=== PATIENT | female | born 1940 ===

== ENCOUNTER 2016-08-05 15:54 | Observation (INO) | payer MEDICARE, OTHER ==
[2016-08-05 15:55] VITALS: BMI 20.9
--- NOTE | 2016-08-05 16:18 | C.PDOC ---
History Of Present Illness Patient is a 75 y/o female that presents to the ED for evaluation of lightheadedness, body aches, generalized weakness, dizziness, abdominal pain, and back pain since last night. Pt states that her symptoms are worse than the previous time she was seen here (05/10/16). Otherwise, denies any urinary symptoms, fever, vomiting, diarrhea, or any other associated symptoms at this time. Time Seen by Provider: 08/05/16 16:17 Chief Complaint (Nursing): Dizziness/Lightheaded History Per: Patient History/Exam Limitations: no limitations Onset/Duration Of Symptoms: Days (1) Current Symptoms Are (Timing): Still Present Recent travel outside of the [place]: No Additional History Per: Patient Past Medical History Reviewed: Historical Data, Nursing Documentation, Vital Signs Vital Signs: Last Vital Signs Temp 98.1 F 08/07/16 15:20 Pulse 75 08/07/16 15:20 Resp 20 08/07/16 15:20 BP 109/72 08/07/16 15:20 Pulse Ox 94 L 08/07/16 15:20 - Medical History PMH: Asthma, Back Problems, HTN, Seizures Surgical History: Cholecystectomy Family History: States: Unknown Family Hx - Social History Hx Tobacco Use: No Hx Alcohol Use: No Hx Substance Use: No - Immunization History Hx Tetanus Toxoid Vaccination: No Hx Influenza Vaccination: Yes Hx Pneumococcal Vaccination: No Review Of Systems Except As Marked, All Systems Reviewed And Found Negative. Constitutional: Positive for: Weakness, Other (body aches). Negative for: Fever , Chills Cardiovascular: Positive for: Light Headedness. Negative for: Chest Pain, Palpitations Respiratory: Negative for: Cough, Shortness of Breath Gastrointestinal: Positive for: Nausea, Abdominal Pain. Negative for: Vomiting , Diarrhea Genitourinary: Negative for: Dysuria, Frequency, Incontinence, Hematuria Musculoskeletal: Positive for: Back Pain Neurological: Positive for: Headache, Dizziness. Negative for: Weakness, Numbness Physical Exam - Physical Exam Appears: Non-toxic, No Acute Distress Skin: Warm, Dry Head: Atraumatic, Normacephalic Eye(s): bilateral: PERRL, EOMI Oral Mucosa: Moist Tongue: No Swelling Neck: Normal ROM, Supple Cardiovascular: Rhythm Regular, No Murmur Respiratory: No Decreased Breath Sounds, No Accessory Muscle Use, No Rales, No Rhonchi, No Wheezing Gastrointestinal/Abdominal: Soft, Tenderness (diffuse, non-focal), No Guarding, No Rebound Back: No CVA Tenderness, No Vertebral Tenderness, Paraspinal Tenderness (lumbar) Pulses: Left Radial: Normal, Right Radial: Normal Neurological/Psych: Oriented x3, Normal Motor, Normal Sensation, No Other (no focal deficits) ED Course And Treatment - Laboratory Results Result Diagrams: 08/06/16 11:44 08/06/16 11:44 O2 Sat by Pulse Oximetry: 95 (on RA) Pulse Ox Interpretation: Normal Progress Note: Abd & pelvis CT, EKG, CXR, labs ordered and reviewed. Pt was given IV fluids, Tylenol, and Zofran. Medical Decision Making Medical Decision Making: EKG: NSR 72bpm. Non-specific T wave changes. 1850 pt still not feeling well. disc w Dr Elaine will admit for obs. CXR FINDINGS: LUNGS: No active pulmonary disease. PLEURA: No significant pleural effusion identified, no pneumothorax apparent. CARDIOVASCULAR: No radiographic findings to suggest acute or significant cardiovascular disease. OSSEOUS STRUCTURES: No significant abnormalities. VISUALIZED UPPER ABDOMEN: Normal. OTHER FINDINGS: None. IMPRESSION: No active disease. No significant interval change compared to the prior examination(s). Abd & pelvis CT FINDINGS: Artifacts: Streak artifact degrades image quality.Motion artifact degrades image quality. Lower thorax: Heart size is normal. There is atelectasis and scarring at the lung bases. ABDOMEN: Liver: There is mild fatty infiltration liver. Gallbladder and bile ducts: Gallbladder is surgically absent. Common bile duct is prominent. There is mild intrahepatic biliary ductal dilatation. Pancreas: Pancreas is mildly atrophic. Spleen: unremarkable Adrenals: unremarkable Kidneys and ureters: No focal renal abnormalities are seen. There is mild bilateral pelvocaliectasis. There is no ureterectasis. Stomach and bowel: Stomach is almost empty. Rotation is normal. There are mildly dilated small bowel loops in the left upper quadrant with air-fluid levels. Distention decreases distally. Streak and motion limits evaluation of bowel. There is fecalization of the distal and terminal ileum. There are surgical clips at the base of the cecum. Streak and motion limit evaluation of the colon. There is moderate stool throughout the colon. There is scattered diverticulosis Appendix: See stomach and bowel PELVIS: Bladder: unremarkable Reproductive: Uterus is absent. There are no adnexal masses. ABDOMEN and PELVIS: Intraperitoneal space: There is no free air or free fluid. Bones/joints: Bony structures are osteopenic.There are degenerative changes in the osseus structures. There is compression fracture at L4, unchanged. Soft tissues: unremarkable Vasculature: There are calcified phleboliths. Vascular structures are unremarkable. Lymph nodes: There is no pathologic adenopathy. IMPRESSION: Mild intra-extrahepatic biliary ductal dilatation status post cholecystectomy; hysterectomy and appendectomy; constipation; stable bilateral pelvocaliectasis, no renal or ureteral stones Additional findings as described above. Disposition - Disposition Disposition: HOSPITALIZED Disposition Time: 18:50 Condition: STABLE - Clinical Impression Clinical Impression: Ileus, UTI (urinary tract infection) - Scribe Statement The provider has reviewed the documentation as recorded by the Andrés Elaine Provider Attestation: All medical record entries made by the Malloryibgenet were at my direction and personally dictated by me. I have reviewed the chart and agree that the record accurately reflects my personal performance of the history, physical exam, medical decision making, and the department course for this patient. I have also personally directed, reviewed, and agree with the discharge instructions and disposition.
[2016-08-05] MEDS ORDERED: Sodium Chloride 0.9% 1,000 ML IV ONE (16:27)
[2016-08-05 16:43] LABS: BASO % 0.3 % (0.0-2.0); EOS # 0.2 K/uL (0.0-0.7); EOS % 1.9 % (0.0-4.0); HEMATOCRIT 40.8 % (34.0-47.0); LYMPH # 1.1 K/uL (1.0-4.3); MEAN CELL VOLUME 90.8 fL (81.0-99.0); MEAN CORPUSCULAR HGB CONC 34.2 g/dL (33.0-37.0); MEAN PLATELET VOLUME 9.4 fL (7.2-11.7); MONO # 0.8 K/uL (0.0-0.8); RED CELL DISTRIBUTION WIDTH 12.8 % (11.5-14.5); WHITE BLOOD COUNT 8.8 K/uL (4.8-10.8)
[2016-08-05] MEDS ORDERED: Morphine 4 MG/ML VIAL ONE (16:44)
[2016-08-05] MEDS ORDERED: Sodium Chloride 0.9% 1,000 ML ONE ×2 (16:45→19:20)
[2016-08-05 16:51] LABS: CHLORIDE 102 mmol/L (98-107); SODIUM 136 mmol/L (132-148)
[2016-08-05 16:52] LABS: POTASSIUM 4.2 mmol/L (3.6-5.2)
[2016-08-05 16:53] LABS: GFR AFRICAN-AMERICAN > 60
[2016-08-05 16:54] LABS: ALB/GLOB RATIO 1.2 (1.0-2.1); ALKALINE PHOSPHATASE 108 U/L (38-126); ALT/SGPT 23 U/L (9-52); AST/SGOT 22 U/L (14-36); BILIRUBIN,TOTAL 0.5 mg/dL (0.2-1.3); BLOOD UREA NITROGEN 17 mg/dL (7-17); CALCIUM 8.4 mg/dl (8.6-10.4); CARBON DIOXIDE 24 mmol/L (22-30); GLUCOSE,RANDOM 87 mg/dL (65-105); TOTAL PROTEIN 7.3 g/dL (6.3-8.3)
--- NOTE | 2016-08-05 17:21 | RAD ---
HISTORY: Dizziness. Portable study 16:33. COMPARISON: 03/06/2016 FINDINGS: LUNGS: No active pulmonary disease. PLEURA: No significant pleural effusion identified, no pneumothorax apparent. CARDIOVASCULAR: No radiographic findings to suggest acute or significant cardiovascular disease. OSSEOUS STRUCTURES: No significant abnormalities. VISUALIZED UPPER ABDOMEN: Normal. OTHER FINDINGS: None. IMPRESSION: No active disease. No significant interval change compared to the prior examination(s).
[2016-08-05] MEDS ORDERED: Iodixanol 320 MG/ML 100 ML BOTTLE IV ONE (17:26)
[2016-08-05 17:46] LABS: RBC URINE 15 /hpf (0-3); URINE BACTERIA RARE (<OCC); URINE BILIRUBIN NEGATIVE (NEGATIVE); URINE BLOOD 2+ (NEGATIVE); URINE COLOR Yellow (YELLOW); URINE GLUCOSE (UA) NORMAL (Normal); URINE KETONE NEGATIVE (NEGATIVE); URINE PROTEIN NEGATIVE (NEGATIVE); URINE UROBILINOGEN NORMAL mg/dL (0.2-1.0); WBC URINE 6 /hpf (0-5)
[2016-08-05 17:47] LABS: URINE LEUKOCYTE ESTERASE TRACE Leu/uL (Negative)
--- NOTE | 2016-08-05 18:32 | CT ---
EXAM: CT Abdomen and Pelvis With Intravenous Contrast CLINICAL HISTORY: 75 years old, female; Pain; Abdominal pain; Generalized; Prior surgery; Surgery date: 6+ months TECHNIQUE: Axial computed tomography images of the abdomen and pelvis with intravenous contrast. This CT exam was performed using one or more of the following dose reduction techniques: automated exposure control, adjustment of the mA and/or kV according to patient size, and/or use of iterative reconstruction technique. Coronal and sagittal reformatted images were created and reviewed. CONTRAST: 100 mL of visipaque administered intravenously. EXAM DATE/TIME: 08/05/2016 4:26 PM COMPARISON: CT - ABD PELVIS IV CONTRAST ONLY 05/10/2016 10:02:12 PM FINDINGS: Artifacts: Streak artifact degrades image quality.Motion artifact degrades image quality. Lower thorax: Heart size is normal. There is atelectasis and scarring at the lung bases. ABDOMEN: Liver: There is mild fatty infiltration liver. Gallbladder and bile ducts: Gallbladder is surgically absent. Common bile duct is prominent. There is mild intrahepatic biliary ductal dilatation. Pancreas: Pancreas is mildly atrophic. Spleen: unremarkable Adrenals: unremarkable Kidneys and ureters: No focal renal abnormalities are seen. There is mild bilateral pelvocaliectasis. There is no ureterectasis. Stomach and bowel: Stomach is almost empty. Rotation is normal. There are mildly dilated small bowel loops in the left upper quadrant with air-fluid levels. Distention decreases distally. Streak and motion limits evaluation of bowel. There is fecalization of the distal and terminal ileum. There are surgical clips at the base of the cecum. Streak and motion limit evaluation of the colon. There is moderate stool throughout the colon. There is scattered diverticulosis Appendix: See stomach and bowel PELVIS: Bladder: unremarkable Reproductive: Uterus is absent. There are no adnexal masses. ABDOMEN and PELVIS: Intraperitoneal space: There is no free air or free fluid. Bones/joints: Bony structures are osteopenic.There are degenerative changes in the osseus structures. There is compression fracture at L4, unchanged. Soft tissues: unremarkable Vasculature: There are calcified phleboliths. Vascular structures are unremarkable. Lymph nodes: There is no pathologic adenopathy. IMPRESSION: Mild intra-extrahepatic biliary ductal dilatation status post cholecystectomy; hysterectomy and appendectomy; constipation; stable bilateral pelvocaliectasis, no renal or ureteral stones Additional findings as described above.
[2016-08-05] MEDS ORDERED: cefTRIAXone IV 1 gm in Dextros 50 ML IVPB ONE (18:51)
[2016-08-05] MEDS ORDERED: Sodium Chloride 0.9% 1,000 ML IV SCH (19:00)
--- NOTE | 2016-08-06 07:56 | CP.PCM.CON ---
<Aura Russell - Last Filed: 08/06/16 09:09> History of Present Illness - History of Present Illness History of Present Illness: Gastroenterology Fellow/PGY4 Consult Note 75 year old female with history of Hypertension, Seizures, Arthritis, and Back pain presenting with abdominal pain. Patient describes sudden onset of diffuse abdominal discomfort last night, pain scale 10/10. At present, she notes moderate improvement in discomfort. Associated subjective fever, chills, right sided headache, right ear pain, and back pain. Notes hard stool with straining yesterday. Normal bowel habits at baseline being every two days with hard stools and straining. Denies nausea, vomiting, hematemesis, abdominal distension , heartburn, acid reflux, indigestion, bloating, melena, hematochezia, or unintentional weight loss. Recent CT A/P PO/IV contrast 07/07/16 showed constipation. ER visit 05/10/16 for lightheadedness and epigastric pain with CT A/ P IV contrast showing constipation. Prior EGD and colonoscopy with gastritis, diverticulosis, and endorsed colon polyps seven to eight years ago [place] [facility] [place]. Family- denies colon cancer Social- denies tobacco, alcohol, illicit drug use Surgery- hysterectomy, appendectomy, cholecystectomy Review of Systems - Review of Systems Review of Systems: A 12-point review of systems negative except for as above Past Patient History - Infectious Disease Hx of Infectious Diseases: None - Past Medical History & Family History Past Medical History?: Yes - Past Social History Smoking Status: Never Smoked - CARDIAC Hx Cardiac Disorders: Yes Hx Hypertension: Yes - PULMONARY Hx Asthma: Yes - NEUROLOGICAL Hx Seizures: Yes - HEENT Hx HEENT Problems: No - RENAL Hx Chronic Kidney Disease: No - ENDOCRINE/METABOLIC Hx Endocrine Disorders: No - HEMATOLOGICAL/ONCOLOGICAL Hx Blood Disorders: Yes Hx Cancer: Yes (ovarian) - INTEGUMENTARY Hx Dermatological Problems: Yes Other/Comment: RT BREAST CYST REMOVED -BENIGN - MUSCULOSKELETAL/RHEUMATOLOGICAL Hx Musculoskeletal Disorders: Yes Hx Falls: No Hx Herniated Disk: Yes - GASTROINTESTINAL Hx Gastrointestinal Disorders: No - GENITOURINARY/GYNECOLOGICAL Hx Genitourinary Disorders: Yes Hx Ovarian Cancer: Yes - PSYCHIATRIC Hx Psychophysiologic Disorder: No Hx Substance Use: No - SURGICAL HISTORY Hx Cholecystectomy: Yes - ANESTHESIA Hx Anesthesia: Yes Hx Anesthesia Reactions: No Meds Allergies/Adverse Reactions: Allergies Allergy/AdvReac Type Severity Reaction Status Date / Time aspirin Allergy Verified 08/05/16 16:11 latex Allergy Verified 08/05/16 16:11 Penicillins Allergy Verified 08/05/16 16:11 - Medications Medications: Current Medications Clonazepam (Klonopin) 2 mg PO TID [facility] Enoxaparin Sodium (Lovenox) 40 mg SC DAILY [facility] Sodium Chloride (Sodium Chloride 0.9%) 1,000 mls @ 100 mls/hr IV .Q10H [facility] Last Admin: 08/05/16 19:24 Dose: 100 mls/hr Phenytoin Sodium (Dilantin) 100 mg PO TID [facility] Physical Exam - Constitutional Appears: Non-toxic, No Acute Distress - Head Exam Head Exam: ATRAUMATIC, NORMOCEPHALIC - Eye Exam Eye Exam: EOMI, PERRL Pupil Exam: PERRL. absent: Miosis, Mydriatic - ENT Exam ENT Exam: Mucous Membranes Moist, Normal Oropharynx - Neck Exam Neck exam: Positive for: Full Rom, Normal Inspection - Respiratory Exam Respiratory Exam: Clear to Auscultation Bilateral. absent: Rales, Rhonchi, Wheezes - Cardiovascular Exam Cardiovascular Exam: RRR, +S1, +S2. absent: Gallop, Rubs - GI/Abdominal Exam GI & Abdominal Exam: Normal Bowel Sounds, Soft, Tenderness. absent: Distended, Firm, Guarding, Organomegaly, Rebound, Rigid Additional comments: Bilateral upper quadrant tenderness to palpation - Extremities Exam Extremities exam: Positive for: normal inspection. Negative for: pedal edema - Neurological Exam Neurological exam: Alert - Psychiatric Exam Psychiatric exam: Normal Affect, Normal Mood - Skin Skin Exam: Dry, Intact, Normal Color, Warm Results - Vital Signs Recent Vital Signs: Last Vital Signs Temp 99.6 F 08/06/16 00:54 Pulse 72 08/06/16 00:54 Resp 20 08/06/16 00:54 BP 119/67 08/06/16 00:54 Pulse Ox 95 08/06/16 00:54 - Labs Result Diagrams: 08/05/16 16:40 08/05/16 16:40 Assessment & Plan - Assessment and Plan (Free Text) Assessment: 75 year old female with history of Hypertension, Seizures, Arthritis, and Back pain presenting with abdominal pain. CT A/P IV contrast showing chronic intra-/ extrahepatic dilatations in setting of cholecystectomy and mild left upper quadrant dilated small bowel loops with decresed distal distension, fecalization of distal/terminal ileum, and constipation. Prior EGD and colonoscopy with gastritis, diverticulosis, and endorsed polyps 7-8 years ago [place] [facility] [place] Plan: >mild dilated small bowel loops with fecalization of terminal ileum, constipation >aggressive bowel regimen- one time Dulcolax PO and tap water enema >start Miralax and Colace daily >heart healthy diet >supportive care: pain control, antiemetics, IVFs >low grade temp, urine culture pending >received one dose Ceftriaxone in ER >will follow clinical course <Jonathan Alves - Last Filed: 08/06/16 09:40> Meds - Medications Medications: Current Medications Clonazepam (Klonopin) 2 mg PO TID [facility] Docusate Sodium (Colace) 100 mg PO BID [facility] Enoxaparin Sodium (Lovenox) 40 mg SC DAILY [facility] Sodium Chloride (Sodium Chloride 0.9%) 1,000 mls @ 100 mls/hr IV .Q10H [facility] Last Admin: 08/05/16 19:24 Dose: 100 mls/hr Phenytoin Sodium (Dilantin) 100 mg PO TID [facility] Polyethylene Glycol (Miralax) 17 gm PO DAILY [facility] Results - Vital Signs Recent Vital Signs: Last Vital Signs Temp 99.6 F 08/06/16 00:54 Pulse 72 08/06/16 00:54 Resp 20 08/06/16 00:54 BP 119/67 08/06/16 00:54 Pulse Ox 95 08/06/16 00:54 - Labs Result Diagrams: 08/05/16 16:40 08/05/16 16:40 Attending/Attestation - Attestation I have personally seen and examined this patient.: Yes I have fully participated in the care of the patient.: Yes I have reviewed all pertinent clinical information: Yes Notes (Text): 08/06/16 09:34 I have seen and examined patient with GI fellow. Agree with above documentation with the following additions. In brief, this is a 75 year old female with history of HTN, seizure disorder, arthritis who presents to hospital with complaint of sudden onset abdominal pain which began last night. Prior to this she was in usual state of health, though she does endorse a history of chronic constipation with hard stools/straining during defecation for past several years. She describes the pain as generalized, 10/10 intensity , non-radiating, and worse following meal consumption. She denies nausea, vomiting, fever/chills, weight loss, rectal bleeding, or change in bowel habits. She had a bowel movement yesterday. She had a colonoscopy 7-8 years ago [place] [facility] [place] which showed a "few" polyps as per patient. HTN Seizure disorder Arthritis Abdominal pain, chronic constipation UTI CT imaging reviewed by me showing moderate fecal retention with mild dilation in small bowel loops, no gross obstruction noted - Diet as tolerated - Continue with antibiotic therapy as per medical team, await urine culture results - Suggest tap water enema now, followed by initiation of aggressive bowel regimen to prevent ongoing constipation including stool softner and miralax therapy - Encourage increased PO water and fiber intake - Patient would benefit from elective outpatient colonoscopy evaluation given prior procedure with history of polyps, office contact information provided to patient - Will continue to monitor patient clinical course
[2016-08-06] MEDS ORDERED: Bisacodyl 5mg EC Tab PO ONE (09:30)
[2016-08-06] MEDS: POLYETHYLENE GLYCOL 3350 17 GM/Dose PACKET PO SCH (10:31)
[2016-08-06] MEDS: Enoxaparin 40 mg Syringe SC SCH (10:33)
[2016-08-06 12:00] LABS: BASO % 0.7 % (0.0-2.0); EOS # 0.2 K/uL (0.0-0.7); EOS % 4.3 % (0.0-4.0); HEMATOCRIT 37.7 % (34.0-47.0); LYMPH % 18.3 % (20.0-40.0); MEAN CELL VOLUME 91.6 fL (81.0-99.0); MEAN CORPUSCULAR HEMOGLOBIN 30.7 pg (27.0-31.0); MEAN CORPUSCULAR HGB CONC 33.5 g/dL (33.0-37.0); MEAN PLATELET VOLUME 9.6 fL (7.2-11.7); MONO # 0.7 K/uL (0.0-0.8); MONO % 12.1 % (0.0-10.0); RED CELL DISTRIBUTION WIDTH 13.1 % (11.5-14.5); WHITE BLOOD COUNT 5.5 K/uL (4.8-10.8)
[2016-08-06 12:05] LABS: CHLORIDE 104 mmol/L (98-107); SODIUM 138 mmol/L (132-148)
[2016-08-06 12:06] LABS: POTASSIUM 4.1 mmol/L (3.6-5.2)
[2016-08-06 12:08] LABS: ALB/GLOB RATIO 1.2 (1.0-2.1); ALKALINE PHOSPHATASE 89 U/L (38-126); ALT/SGPT 17 U/L (9-52); AST/SGOT 17 U/L (14-36); BILIRUBIN,TOTAL 0.4 mg/dL (0.2-1.3); BLOOD UREA NITROGEN 9 mg/dL (7-17); CARBON DIOXIDE 27 mmol/L (22-30); GFR AFRICAN-AMERICAN > 60; GLUCOSE,RANDOM 125 mg/dL (65-105); TOTAL PROTEIN 6.4 g/dL (6.3-8.3)
[2016-08-06 12:09] LABS: CALCIUM 8.1 mg/dl (8.6-10.4)
--- NOTE | 2016-08-06 13:13 | CP.PCM.HP ---
History of Present Illness - History of Present Illness History of Present Illness: 75-year-old old female patient with a past medical history of hypertension, seizures, asthma, who presented to the ER for evaluation of lightheadedness, body aches, generalized weakness, dizziness, abdominal pain and back pain since last night. Patient states that her symptoms are worse than the previous time she was seen here. Denies any urinary symptoms, fever, vomiting, diarrhea or any other associated symptom at this time. Present on Admission - Present on Admission Any Indicators Present on Admission: No Past Patient History - Infectious Disease Hx of Infectious Diseases: None - Past Medical History & Family History Past Medical History?: Yes - Past Social History Smoking Status: Never Smoked - CARDIAC Hx Cardiac Disorders: Yes Hx Hypertension: Yes - PULMONARY Hx Asthma: Yes - NEUROLOGICAL Hx Seizures: Yes - HEENT Hx HEENT Problems: No - RENAL Hx Chronic Kidney Disease: No - ENDOCRINE/METABOLIC Hx Endocrine Disorders: No - HEMATOLOGICAL/ONCOLOGICAL Hx Blood Disorders: Yes Hx Cancer: Yes (ovarian) - INTEGUMENTARY Hx Dermatological Problems: Yes Other/Comment: RT BREAST CYST REMOVED -BENIGN - MUSCULOSKELETAL/RHEUMATOLOGICAL Hx Musculoskeletal Disorders: Yes Hx Falls: No Hx Herniated Disk: Yes - GASTROINTESTINAL Hx Gastrointestinal Disorders: No - GENITOURINARY/GYNECOLOGICAL Hx Genitourinary Disorders: Yes Hx Ovarian Cancer: Yes - PSYCHIATRIC Hx Psychophysiologic Disorder: No Hx Substance Use: No - SURGICAL HISTORY Hx Cholecystectomy: Yes - ANESTHESIA Hx Anesthesia: Yes Hx Anesthesia Reactions: No Meds Allergies/Adverse Reactions: Allergies Allergy/AdvReac Type Severity Reaction Status Date / Time aspirin Allergy Verified 08/05/16 16:11 latex Allergy Verified 08/05/16 16:11 Penicillins Allergy Verified 08/05/16 16:11 Physical Exam - Constitutional Appears: Well - Head Exam Head Exam: ATRAUMATIC, NORMAL INSPECTION, NORMOCEPHALIC - Eye Exam Eye Exam: EOMI, Normal appearance, PERRL Pupil Exam: NORMAL ACCOMODATION, PERRL - ENT Exam ENT Exam: Mucous Membranes Moist, Normal Exam - Neck Exam Neck exam: Positive for: Normal Inspection - Respiratory Exam Respiratory Exam: Decreased Breath Sounds - Cardiovascular Exam Cardiovascular Exam: REGULAR RHYTHM, +S1, +S2 - GI/Abdominal Exam GI & Abdominal Exam: Diminished Bowel Sounds, Soft - Rectal Exam Rectal Exam: Deferred Results - Vital Signs Recent Vital Signs: Last Vital Signs Temp 99.6 F 08/06/16 00:54 Pulse 72 08/06/16 00:54 Resp 20 08/06/16 00:54 BP 119/67 08/06/16 00:54 Pulse Ox 95 08/06/16 00:54 - Labs Result Diagrams: 08/06/16 11:44 08/06/16 11:44 Labs: Laboratory Results - last 24 hr 08/06/16 08/06/16 11:44 11:44 WBC 5.5 RBC 4.12 Hgb 12.6 Hct 37.7 MCV 91.6 MCH 30.7 MCHC 33.5 RDW 13.1 Plt Count 134 MPV 9.6 Neut % (Auto) 64.6 Lymph % (Auto) 18.3 L [place] % (Auto) 12.1 H Eos % (Auto) 4.3 H Baso % (Auto) 0.7 Neut # 3.6 Lymph # 1.0 [place] # 0.7 Eos # 0.2 Baso # 0.0 Sodium 138 Potassium 4.1 Chloride 104 Carbon Dioxide 27 Anion Gap 11 BUN 9 Creatinine 0.7 Est GFR ( Amer) > 60 Est GFR (Non-Af Amer) > 60 Random Glucose 125 H Calcium 8.1 L Total Bilirubin 0.4 AST 17 ALT 17 Alkaline Phosphatase 89 Total Protein 6.4 Albumin 3.5 Globulin 2.9 Albumin/Globulin Ratio 1.2 Assessment & Plan (1) Allergic rhinitis Status: Acute (2) Anxiety Status: Acute (3) Bronchitis, asthmatic Status: Acute (4) Epigastric abdominal pain Status: Acute (5) Ileus Status: Acute (6) Neck pain Status: Acute (7) Neck sprain Status: Acute (8) UTI (urinary tract infection) Status: Acute (9) UTI (urinary tract infection) Status: Acute - Assessment and Plan (Free Text) Plan: Consult with GI CT shows moderate fecal retention with mild dilation of small bowel loops Lovenox IV fluid Colace MiraLAX
--- NOTE | 2016-08-07 07:20 | CP.PCM.PN ---
<Aura Russell - Last Filed: 08/07/16 08:35> Subjective - Date & Time of Evaluation Date of Evaluation: 08/07/16 Time of Evaluation: 07:18 - Subjective Subjective: Gastroenterology Fellow/PGY4 Progress Note Patient notes resolved abdominal pain. Moderate formed bowel movement with Dulcolax. Did not take the enema. Tolerated regular diet. Continues to have a headache. A 12-point review of systems negative except for as above. Objective - Vital Signs/Intake and Output Vital Signs (last 24 hours): Temp Pulse Resp BP Pulse Ox 98.4 F 80 20 144/84 96 08/06/16 23:40 08/06/16 23:40 08/06/16 23:40 08/06/16 23:40 08/06/16 23:40 Intake and Output: 08/07/16 08/07/16 06:59 18:59 Intake Total 1220 Balance 1220 - Medications Medications: Current Medications Clonazepam (Klonopin) 2 mg PO TID [facility] Last Admin: 08/06/16 17:58 Dose: 2 mg Docusate Sodium (Colace) 100 mg PO BID [facility] Last Admin: 08/06/16 17:58 Dose: 100 mg Enoxaparin Sodium (Lovenox) 40 mg SC DAILY [facility] Last Admin: 08/06/16 10:33 Dose: 40 mg Sodium Chloride (Sodium Chloride 0.9%) 1,000 mls @ 100 mls/hr IV .Q10H [facility] Last Admin: 08/05/16 19:24 Dose: 100 mls/hr Phenytoin Sodium (Dilantin) 100 mg PO TID [facility] Last Admin: 08/06/16 17:58 Dose: 100 mg Polyethylene Glycol (Miralax) 17 gm PO DAILY [facility] Last Admin: 08/06/16 10:31 Dose: 17 gm - Labs Labs: 08/06/16 11:44 08/06/16 11:44 - Constitutional Appears: Non-toxic, No Acute Distress - Head Exam Head Exam: ATRAUMATIC, NORMOCEPHALIC - Eye Exam Eye Exam: EOMI, PERRL Pupil Exam: PERRL. absent: Miosis, Mydriatic - ENT Exam ENT Exam: Mucous Membranes Moist, Normal Oropharynx - Neck Exam Neck Exam: Full ROM, Normal Inspection - Respiratory Exam Respiratory Exam: Clear to Ausculation Bilateral. absent: Rales, Rhonchi, Wheezes - Cardiovascular Exam Cardiovascular Exam: RRR, +S1, +S2. absent: Gallop, Rubs - GI/Abdominal Exam GI & Abdominal Exam: Soft, Normal Bowel Sounds. absent: Distended, Firm, Guarding, Rigid, Tenderness, Organomegaly, Rebound - Extremities Exam Extremities Exam: Full ROM. absent: Pedal Edema - Neurological Exam Neurological Exam: Alert, Awake - Psychiatric Exam Psychiatric exam: Normal Affect, Normal Mood - Skin Skin Exam: Dry, Intact, Normal Color, Warm Assessment and Plan - Assessment and Plan (Free Text) Assessment: 75 year old female with history of Hypertension, Seizures, Arthritis, and Back pain presenting with abdominal pain. CT A/P IV contrast showing chronic intra-/ extrahepatic dilatations in setting of cholecystectomy and mild left upper quadrant dilated small bowel loops with decreased distal distension, fecalization of distal/terminal ileum, and constipation. Prior EGD and colonoscopy with gastritis, diverticulosis, and endorsed polyps 7-8 years ago at [facility]. Plan: >mild dilated small bowel loops with fecalization of terminal ileum, constipation >ordered Dulcolax ND x 1 >continue Miralax and Colace daily >pain resolved >tolerating heart healthy diet >supportive care: pain control, antiemetics, IVFs >elective outpatient colonoscopy, follow up with Dr. Alves <Jonathan Alves - Last Filed: 08/07/16 08:41> Objective - Vital Signs/Intake and Output Vital Signs (last 24 hours): Temp Pulse Resp BP Pulse Ox 98 F 70 18 114/71 93 L 08/07/16 08:15 08/07/16 08:15 08/07/16 08:15 08/07/16 08:15 08/07/16 08:15 Intake and Output: 08/07/16 08/07/16 06:59 18:59 Intake Total 1220 Balance 1220 - Medications Medications: Current Medications Clonazepam (Klonopin) 2 mg PO TID [facility] Last Admin: 08/06/16 17:58 Dose: 2 mg Docusate Sodium (Colace) 100 mg PO BID [facility] Last Admin: 08/06/16 17:58 Dose: 100 mg Enoxaparin Sodium (Lovenox) 40 mg SC DAILY [facility] Last Admin: 08/06/16 10:33 Dose: 40 mg Phenytoin Sodium (Dilantin) 100 mg PO TID [facility] Last Admin: 08/06/16 17:58 Dose: 100 mg Polyethylene Glycol (Miralax) 17 gm PO DAILY [facility] Last Admin: 08/06/16 10:31 Dose: 17 gm - Labs Labs: 08/06/16 11:44 08/06/16 11:44 Attending/Attestation - Attestation I have personally seen and examined this patient.: Yes I have fully participated in the care of the patient.: Yes I have reviewed all pertinent clinical information, including history, physical exam and plan: Yes Notes (Text): 08/07/16 08:38 I have seen and examined patient with GI fellow. No acute events overnight. She is seen sitting in bed eating breakfast, appears comfortable. She had two bowel movements yesterday and her abdominal pain has resolved. She denies nausea, vomiting, fever/chills. Her main complaint today is headache with sinus congestion. HTN Seizure disorder Arthritis Abdominal pain - resolved. Constipation. - Diet as tolerated - Continue with aggressive bowel regimen to prevent ongoing constipation - Encourage increased PO water and fiber intake - From GI standpoint ok to discharge home with additional outpatient follow up and elective colonoscopy. Will sign off case, please reconsult as necessary, thank you.
[2016-08-07] MEDS: Enoxaparin 40 mg Syringe SC SCH (09:18)
[2016-08-07] MEDS: POLYETHYLENE GLYCOL 3350 17 GM/Dose PACKET PO SCH (09:19)
[2016-08-07 13:56] VITALS: RESP 20; TEMP 98.1
[2016-08-07 17:22] VITALS: BP 109/72; PULSE 75
--- NOTE | 2016-08-07 18:14 | CP.PCM.PN ---
Subjective - Date & Time of Evaluation Date of Evaluation: 08/07/16 Time of Evaluation: 10:00 - Subjective Subjective: clinically same Objective - Vital Signs/Intake and Output Vital Signs (last 24 hours): Temp Pulse Resp BP Pulse Ox 98.1 F 75 20 109/72 94 L 08/07/16 15:20 08/07/16 15:20 08/07/16 15:20 08/07/16 15:20 08/07/16 15:20 Intake and Output: 08/07/16 08/07/16 06:59 18:59 Intake Total 1220 480 Balance 1220 480 - Medications Medications: Current Medications Clonazepam (Klonopin) 2 mg PO TID [facility] Last Admin: 08/07/16 17:37 Dose: 2 mg Docusate Sodium (Colace) 100 mg PO BID [facility] Last Admin: 08/07/16 17:36 Dose: 100 mg Enoxaparin Sodium (Lovenox) 40 mg SC DAILY [facility] Last Admin: 08/07/16 09:18 Dose: 40 mg Phenytoin Sodium (Dilantin) 100 mg PO TID [facility] Last Admin: 08/07/16 17:36 Dose: 100 mg Polyethylene Glycol (Miralax) 17 gm PO DAILY [facility] Last Admin: 08/07/16 09:19 Dose: 17 gm - Labs Labs: 08/06/16 11:44 08/06/16 11:44 - Constitutional Appears: Well - Head Exam Head Exam: ATRAUMATIC, NORMAL INSPECTION, NORMOCEPHALIC - Eye Exam Eye Exam: EOMI, Normal appearance, PERRL Pupil Exam: NORMAL ACCOMODATION, PERRL - ENT Exam ENT Exam: Mucous Membranes Moist, Normal Exam - Neck Exam Neck Exam: Full ROM, Normal Inspection. absent: Lymphadenopathy - Respiratory Exam Respiratory Exam: Decreased Breath Sounds - Cardiovascular Exam Cardiovascular Exam: REGULAR RHYTHM, +S1, +S2 - GI/Abdominal Exam GI & Abdominal Exam: Soft, Diminished Bowel Sounds - Rectal Exam Rectal Exam: Deferred Assessment and Plan (1) Allergic rhinitis Status: Acute (2) Anxiety Status: Acute (3) Bronchitis, asthmatic Status: Acute (4) Epigastric abdominal pain Status: Acute (5) Ileus Status: Acute (6) Neck pain Status: Acute (7) Neck sprain Status: Acute (8) UTI (urinary tract infection) Status: Acute (9) UTI (urinary tract infection) Status: Acute - Assessment and Plan (Free Text) Plan: Patient to be discharged home today Follow-up with me in my office in 1 week
--- NOTE | 2016-08-08 12:13 | CARD ---
APPROVED REPORT EKG Measurement Heart [id number] <Conclusion> Normal sinus rhythm Nonspecific T wave abnormality Abnormal ECG
[2016-08-09 17:38] VITALS: O2SAT 95
== END 2016-08-07 20:32 | disposition home or self-care (01) ==
LOC: C.ER 15:54 → C.9E 18:46 → C.5T 19:32
PROVIDERS: ADMIT Internal Medicine Nephrology; ATTEND Internal Medicine Nephrology
DX: K56.7 Ileus, unspecified (principal); N39.0 Urinary tract infection, site not specified; I10 Essential (primary) hypertension; R42 Dizziness and giddiness
CPT/HCPCS: 36415; 71010; 74177; 80053; 80186; 81001; 82948; 83690; 83880; 84484; 85025; 87086; 93005; 96361; 96365; 96375; 99285; G0378; J0696; J1650; J2405; J7040; Q9967

== ENCOUNTER 2018-06-27 21:35 | Inpatient (IN) | payer MEDICARE, OTHER ==
[2018-06-27 21:35] VITALS: BMI 20.9
[2018-06-27 22:36] LABS: BASO % 0.7 % (0.0-2.0); EOS # 0.1 K/uL (0.0-0.7); EOS % 1.6 % (0.0-4.0); HEMOGLOBIN 13.1 g/dL (11.0-16.0); LYMPH # 1.6 K/uL (1.0-4.3); LYMPH % 26.1 % (20.0-40.0); MEAN CELL VOLUME 92.1 fL (81.0-99.0); MEAN CORPUSCULAR HEMOGLOBIN 30.9 pg (27.0-31.0); MEAN CORPUSCULAR HGB CONC 33.6 g/dL (33.0-37.0); MEAN PLATELET VOLUME 9.3 fL (7.2-11.7); MONO # 0.5 K/uL (0.0-0.8); NEUT # 3.8 K/uL (1.8-7.0); NEUT % 63.6 % (50.0-75.0); NRBC % 0.1 % (0.0-2.0); RBC 4.25 Mil/uL (3.80-5.20); RED CELL DISTRIBUTION WIDTH 13.4 % (11.5-14.5)
[2018-06-27 22:48] LABS: SQUAMOUS EPITHIAL 1 /hpf (0-5); URINE BILIRUBIN NEGATIVE (NEGATIVE); URINE BLOOD NEGATIVE (NEGATIVE); URINE CLARITY Clear (Clear); URINE COLOR Yellow (YELLOW); URINE GLUCOSE (UA) NORMAL (Normal); URINE LEUKOCYTE ESTERASE 1+ Leu/uL (Negative); URINE PROTEIN NEGATIVE (NEGATIVE); URINE UROBILINOGEN NORMAL mg/dL (0.2-1.0)
[2018-06-27 22:50] LABS: ALB/GLOB RATIO 1.7 (1.0-2.1); ALBUMIN 4.3 g/dL (3.5-5.0); ALT/SGPT 17 U/L (9-52); AST/SGOT 25 U/L (14-36); BLOOD UREA NITROGEN 18 mg/dL (7-17); CALCIUM 9.4 mg/dl (8.6-10.4); GFR NON-AFRICAN AMERICAN > 60
[2018-06-27 22:51] LABS: PROTHROMBIN TIME 11.2 SECONDS (9.7-12.2)
[2018-06-27 23:04] LABS: CK-MB 0.79 ng/mL (0.0-3.38)
--- NOTE | 2018-06-27 23:09 | C.PDOC ---
History Of Present Illness 77 y/o F c PMHx asthma p/w syncope. Patient was walking out of religion, felt lightheaded, fell, hit head, reports LOC. Now reports pain to the head, bilateral knees, R foot. Denies chest pain or dyspnea. Denies palpitations. Time Seen by Provider: 06/27/18 21:46 Chief Complaint (Nursing): Dizziness/Lightheaded Past Medical History Vital Signs: Last Vital Signs Temp 98.4 F 06/27/18 21:45 Pulse 69 06/27/18 21:45 Resp 20 06/27/18 21:45 BP 159/86 H 06/27/18 21:45 Pulse Ox 100 06/27/18 21:45 - Medical History PMH: Asthma, Back Problems, HTN, Seizures Denies: Chronic Kidney Disease Surgical History: Cholecystectomy Family History: States: Unknown Family Hx - Social History Hx Tobacco Use: No Hx Alcohol Use: No Hx Substance Use: No - Immunization History Hx Tetanus Toxoid Vaccination: No Hx Influenza Vaccination: Yes Hx Pneumococcal Vaccination: No Review Of Systems Except As Marked, All Systems Reviewed And Found Negative. Constitutional: Negative for: Fever Cardiovascular: Negative for: Chest Pain Physical Exam - Physical Exam Additional Physical Exam Comments: gen nad head nc, abrasion to l maxilla without tenderness eyes perrl ent mmm neck no midline tenderness chest no tenderness cv reg rate lungs cta b/l abd soft, nt back no midline tenderness extremities from x 4. tenderness to r ankle skin abrasions to face, knees neuro alert ED Course And Treatment - Laboratory Results Result Diagrams: 06/27/18 22:29 06/27/18 22:29 Lab Results: PT 11.2 SECONDS (9.7-12.2) 06/27/18 22:29 INR 1.0 06/27/18 22:29 APTT 30 SECONDS (21-34) 06/27/18 22:29 Troponin I < 0.0120 ng/mL (0.00-0.120) 06/27/18 22:29 Total Bilirubin 0.2 mg/dL (0.2-1.3) 06/27/18 22:29 AST 25 U/L (14-36) 06/27/18 22:29 ALT 17 U/L (9-52) 06/27/18 22:29 Alkaline Phosphatase 129 U/L (38-126) H 06/27/18 22:29 Total Protein 6.9 g/dL (6.3-8.3) 06/27/18 22:29 Albumin 4.3 g/dL (3.5-5.0) 06/27/18 22: Globulin 2.6 gm/dL (2.2-3.9) 06/27/18 22:29 Albumin/Globulin Ratio 1.7 (1.0-2.1) 06/27/18 22:29 Urine Color Yellow (YELLOW) 06/27/18 22:41 Urine Clarity Clear (Clear) 06/27/18 22:41 Urine pH 7.0 (5.0-8.0) 06/27/18 22:41 Ur Specific [place] 1.013 (1.003-1.030) 06/27/18 22:41 Urine Protein Negative mg/dL (NEGATIVE) 06/27/18 22:41 Urine Glucose (UA) Normal mg/dL (Normal) 06/27/18 22:41 Urine Ketones Negative mg/dL (NEGATIVE) 06/27/18 22:41 Urine Blood Negative (NEGATIVE) 06/27/18 22:41 Urine Nitrate Negative (NEGATIVE) 06/27/18 22:41 Urine Bilirubin Negative (NEGATIVE) 06/27/18 22:41 Urine Urobilinogen Normal mg/dL (0.2-1.0) 06/27/18 22:41 Ur Leukocyte Esterase 1+ Erica/uL (Negative) H 06/27/18 22:41 Urine WBC (Auto) 4 /hpf (0-5) 06/27/18 22:41 Urine RBC (Auto) 3 /hpf (0-3) 06/27/18 22:41 Ur Squamous Epith Cells 1 /hpf (0-5) 06/27/18 22:41 O2 Sat by Pulse Oximetry: 100 Medical Decision Making Medical Decision Making: CT head negative for ICH. XR knees, foot, ankle negative for fracture or dislocation CXR no acute disease. EKG NSR 67 bpm, no ST/T wave changes. Disposition - Disposition Disposition: HOSPITALIZED Disposition Time: 23:09 Condition: FAIR Forms: [employer] (Croatian) - Clinical Impression Clinical Impression: Syncope
--- NOTE | 2018-06-28 07:33 | CP.PCM.CON ---
History of Present Illness - History of Present Illness History of Present Illness: CONSULTATION DICTATED NEW ONSET SYNCOPE ABNORMAL CAT Hx BRAIN TUMOR AND HAD RADIATION IN [facility] PROBABLE SEIZURES CHECK [facility] EEG MRI BRAIN SEIZURE PRECAUTION CONTINUE DILANTIN AND CLONOPIN Past Patient History - Infectious Disease Hx of Infectious Diseases: None - Past Medical History & Family History Past Medical History?: Yes - Past Social History Smoking Status: Never Smoked - CARDIAC Hx Hypertension: Yes - PULMONARY Hx Asthma: Yes - NEUROLOGICAL Hx Seizures: Yes - HEENT Hx HEENT Problems: No - RENAL Hx Chronic Kidney Disease: No - ENDOCRINE/METABOLIC Hx Endocrine Disorders: No - HEMATOLOGICAL/ONCOLOGICAL Hx Blood Disorders: Yes Hx Cancer: Yes (ovarian) - INTEGUMENTARY Hx Dermatological Problems: Yes Other/Comment: RT BREAST CYST REMOVED -BENIGN - MUSCULOSKELETAL/RHEUMATOLOGICAL Hx Musculoskeletal Disorders: Yes Hx Falls: No Hx Herniated Disk: Yes - GASTROINTESTINAL Hx Gastrointestinal Disorders: No - GENITOURINARY/GYNECOLOGICAL Hx Genitourinary Disorders: Yes Hx Ovarian Cancer: Yes - PSYCHIATRIC Hx Substance Use: No - SURGICAL HISTORY Hx Cholecystectomy: Yes - ANESTHESIA Hx Anesthesia: Yes Hx Anesthesia Reactions: No Meds Allergies/Adverse Reactions: Allergies Allergy/AdvReac Type Severity Reaction Status Date / Time aspirin Allergy Verified 06/27/18 21:47 latex Allergy Verified 06/27/18 21:47 Penicillins Allergy Verified 06/27/18 21:47 - Medications Medications: Current Medications Clonazepam (Klonopin) 2 mg PO TID [facility] Phenytoin (Dilantin) 100 mg PO TID [facility] Results - Vital Signs Recent Vital Signs: Last Vital Signs Temp 97.9 F 06/28/18 04:26 Pulse 65 06/28/18 04:26 Resp 20 06/28/18 04:26 BP 102/65 06/28/18 04:26 Pulse Ox 97 06/28/18 04:26 - Labs Result Diagrams: 06/27/18 22:29 06/27/18 22:29 Labs: Laboratory Results - last 24 hr 06/27/18 06/27/18 06/27/18 21:49 22:29 22:29 WBC 6.0 RBC 4.25 Hgb 13.1 Hct 39.2 MCV 92.1 MCH 30.9 MCHC 33.6 RDW 13.4 Plt Count 176 MPV 9.3 Neut % (Auto) 63.6 Lymph % (Auto) 26.1 [place] % (Auto) 8.0 Eos % (Auto) 1.6 Baso % (Auto) 0.7 Neut # (Auto) 3.8 Lymph # (Auto) 1.6 [place] # (Auto) 0.5 Eos # (Auto) 0.1 Baso # (Auto) 0.0 PT 11.2 INR 1.0 APTT 30 Sodium Potassium Chloride Carbon Dioxide Anion Gap BUN Creatinine Est GFR ( Amer) Est GFR (Non-Af Amer) POC Glucose (mg/dL) 103 Random Glucose Calcium Total Bilirubin AST ALT Alkaline Phosphatase Total Creatine Kinase CK-MB (Mass) Troponin I Total Protein Albumin Globulin Albumin/Globulin Ratio Urine Color Urine Clarity Urine pH Ur Specific [place] Urine Protein Urine Glucose (UA) Urine Ketones Urine Blood Urine Nitrate Urine Bilirubin Urine Urobilinogen Ur Leukocyte Esterase Urine WBC (Auto) Urine RBC (Auto) Ur Squamous Epith Cells Blood Type Antibody Screen 06/27/18 06/27/18 06/27/18 22:29 22:29 22:41 WBC RBC Hgb Hct MCV MCH MCHC RDW Plt Count MPV Neut % (Auto) Lymph % (Auto) [place] % (Auto) Eos % (Auto) Baso % (Auto) Neut # (Auto) Lymph # (Auto) [place] # (Auto) Eos # (Auto) Baso # (Auto) PT INR APTT Sodium 140 Potassium 4.3 Chloride 106 Carbon Dioxide 26 Anion Gap 12 BUN 18 H Creatinine 0.5 L Est GFR ( Amer) > 60 Est GFR (Non-Af Amer) > 60 POC Glucose (mg/dL) Random Glucose 91 D Calcium 9.4 Total Bilirubin 0.2 AST 25 ALT 17 Alkaline Phosphatase 129 H Total Creatine Kinase 81 CK-MB (Mass) 0.79 Troponin I < 0.0120 Total Protein 6.9 Albumin 4.3 Globulin 2.6 Albumin/Globulin Ratio 1.7 Urine Color Yellow Urine Clarity Clear Urine pH 7.0 Ur Specific [place] 1.013 Urine Protein Negative Urine Glucose (UA) Normal Urine Ketones Negative Urine Blood Negative Urine Nitrate Negative Urine Bilirubin Negative Urine Urobilinogen Normal Ur Leukocyte Esterase 1+ H Urine WBC (Auto) 4 Urine RBC (Auto) 3 Ur Squamous Epith Cells 1 Blood Type O POSITIVE Antibody Screen Negative
[2018-06-28 07:57] LABS: PROLACTIN 14.9 ng/mL (3.0-18.9)
--- NOTE | 2018-06-28 08:02 | CT ---
Date of service: 06/27/2018 PROCEDURE: CT HEAD WITHOUT CONTRAST. HISTORY: fall, syncope COMPARISON: 04/16/2013 TECHNIQUE: Axial computed tomography images were obtained through the head/brain without intravenous contrast. Radiation dose: Total exam DLP = 1063.8 mGy-cm. This CT exam was performed using one or more of the following dose reduction techniques: Automated exposure control, adjustment of the mA and/or kV according to patient size, and/or use of iterative reconstruction technique. FINDINGS: HEMORRHAGE: No intracranial hemorrhage. BRAIN: Again seen is a 1.9 x 1.9 centimeters soft tissue mass at the falx at the vertex, mildly eccentric to the left side. Associated calcifications and increased attenuation present. This may represent a meningioma. Additional etiologies not excluded. Correlation with MRI may be helpful if clinically indicated. Overall this is not significantly changed since 2013. No mass effect or edema. Scattered focal lucencies in the subcortical and periventricular white matter suggestive for chronic microvascular ischemic change. . VENTRICLES: Unremarkable. No hydrocephalus. CALVARIUM: Unremarkable. PARANASAL SINUSES: Unremarkable as visualized. No significant inflammatory changes. MASTOID AIR CELLS: Unremarkable as visualized. No inflammatory changes. OTHER FINDINGS: Left frontal scalp soft tissue swelling and hematoma formation. IMPRESSION: Left frontal soft tissue swelling with hematoma formation. No acute intracranial abnormality. Stable 1.9 centimeter soft tissue mass at the falx at the vertex, mildly eccentric to the left side with associated calcifications and increased attenuation suggestive for a meningioma. Additional etiologies not excluded. Correlation with MRI may be helpful if clinically indicated. Overall this is not significantly changed since the prior study. If symptoms persists, consider correlation with MRI. A preliminary report was generated at 11:35 p.m. on 06/27/[address] Aniceto Gillis from [employer].
[2018-06-28 08:41] LABS: CK-MB 0.71 ng/mL (0.0-3.38)
--- NOTE | 2018-06-28 09:14 | RAD ---
Chest x-ray single frontal view HISTORY: Syncope. Comparison: 08/05/2016 Findings: Biapical pleural thickening with upper lobe granulomatous changes. Mild nodularity at the medial right lung base. Small nodular density at the right costophrenic angle may represent vessel on end. Diffuse increased interstitial markings. Right hilar prominence. Heart size within normal limits. Degenerative changes spine. Impression: Biapical pleural thickening with upper lobe granulomatous changes. Mild nodularity at the medial right lung base. Small nodular density at the right costophrenic angle may represent vessel on end. Diffuse increased interstitial markings. Right hilar prominence.
--- NOTE | 2018-06-28 09:42 | RAD ---
Date of service: 06/27/2018 PROCEDURE: Bilateral Knee Radiographs. HISTORY: knee pain, fall COMPARISON: None. TECHNIQUE: 4 views obtained. FINDINGS: BONES: Right Knee: Normal. No fracture. Left Knee: Normal. No fracture. JOINTS: Right Knee: Mild medial compartment narrowing. Left knee: Symmetrical medial compartment narrowing. SOFT TISSUES: Right Knee: Normal. Left Knee: Normal. JOINT EFFUSION: Right Knee: None. Left Knee: None. OTHER FINDINGS: None. IMPRESSION: No significant or acute findings to account for/ related to the clinical presentation. Additional benign and/or incidental findings described above.
--- NOTE | 2018-06-28 09:43 | RAD ---
Date of service: 06/27/2018 PROCEDURE: Right Ankle Radiographs. HISTORY: fall, ankle pain COMPARISON: None. TECHNIQUE: 3 views obtained. FINDINGS: BONES: Normal. No fracture. JOINTS: Normal. No osteoarthritis. Ankle mortise maintained. Talar dome intact SOFT TISSUES: Normal. OTHER FINDINGS: None. IMPRESSION: No acute findings related to/ accounting for the clinical presentation.
--- NOTE | 2018-06-28 09:44 | RAD ---
Date of service: Via the 06/27/2018 PROCEDURE: Right Foot Radiographs. HISTORY: Posttraumatic foot pain COMPARISON: None. TECHNIQUE: 3 views obtained. FINDINGS: BONES: Normal. No fracture. JOINTS: Normal. SOFT TISSUES: Normal. OTHER FINDINGS: None. IMPRESSION: No acute findings related to/ accounting for the clinical presentation.
--- NOTE | 2018-06-28 09:51 | MRI ---
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 FINDINGS: HEMORRHAGE: None DWI: No evidence of an acute or early subacute infarction. BRAIN PARENCHYMA: Stable 1.9 centimeter dural-based mass along the posterior falx superiorly which is slightly hyperintense to brain matter and compatible with a meningioma. Minimal chronic white matter ischemic disease. VENTRICLES: Unremarkable. No hydrocephalus. CRANIUM: Unremarkable. ORBITS: Grossly unremarkable. PARANASAL SINUSES/MASTOIDS: Clear VASCULAR SYSTEM: Skull base flow voids intact. OTHER FINDINGS: None. IMPRESSION: Stable 1.9 centimeter dural-based mass along the posterior falx superiorly which is slightly hyperintense to brain matter and compatible with a meningioma. Minimal chronic white matter ischemic disease.
[2018-06-28] MEDS: Phenytoin 100 mg/4 ml Oral Susp UD PO SCH ×2 (11:11→17:37)
[2018-06-28 12:12] LABS: CK-MB 0.62 ng/mL (0.0-3.38)
[2018-06-28 12:16] LABS: PROLACTIN 10.9 ng/mL (3.0-18.9)
--- NOTE | 2018-06-28 13:29 | CON ---
DATE: 06/28/2018 TIME OF EVALUATION: 07:15 a.m. REASON FOR ADMISSION: Syncopal attack. CHIEF COMPLAINT: The patient was brought in from the [facility] with a history of a witnessed syncopal attack in the chest. From neurological point of view, I was called in to evaluate her for further management. HISTORY OF PRESENT ILLNESS: Ms. Karmen Balbuena is 77-year-old right-handed female. While she was in the [facility], missed the step and fell down and loss of consciousness. This episode not associating with bowel and bladder incontinence or witnessed tonic-clonic activities or bitten tongue. Her mentation was resumed after a few minutes. The patient carries a history of seizures, been worked up, a tumor in the head been radiated in [facility] few years ago. History of seizures for more than 20 years and last seizure was 3 years ago, been stable with Dilantin. PAST MEDICAL HISTORY: As stated above. PERSONAL HISTORY: Denies smoking or alcohol use. ALLERGIES: No known allergies. MEDICATIONS: Klonopin and Dilantin. PHYSICAL EXAMINATION: VITAL SIGNS: Blood pressure 102/65, mean artery pressure of 77, respiratory rate 18, temperature 97.9, pulse rate 65 regular. NECK: Supple. No carotid bruits. HEART: Sounds regular. CHEST: Fair entry. EXTREMITIES: No edema in legs. NEUROLOGIC EXAMINATION: MENTAL STATUS EXAM: She is awake, alert, oriented to person, place and time. Speech is clear. Naming, repetition, fluency, comprehension all within normal. CRANIAL NERVE EXAMINATION: Visual field intact. Pupils reactive. Extraocular movement normal. No nystagmus. No facial sensory deficit. No facial asymmetry. Hearing is normal. Tongue is midline. Good gag. Motor Examination: Outstretched hand with eyes closed. No drift noted. Power is symmetric on either side. Deep tendon reflexes biceps, brachialis, triceps absent, plantars are downgoing. Sensory Examination: Mild sensorimotor neuropathy. Coordination: Finger-nose testing, mild dysmetria. Gait is deferred at this time. CONCLUSION: On reviewing her history from the chart, from the nurse including from the patient, her presentation seems to be seizures, probably secondary to her existing intracranial lesion or subtherapeutic dose of antiepileptic drugs. However, other possible causes of cardiac arrhythmias versus orthostatic hypotension should be ruled out. RECOMMENDATIONS: CT of the head reviewed by me showed supratentorial falx region globular hyperdense hyperlucent area with possible calcified versus hemorrhagic component seen within the lesion. There is association of dural continuation associating with the mass suggestive of possible meningioma. That has some mass effect on either side of the frontal lobe. Blood workup: WBC 6, hemoglobin 13.1, hematocrit 39.2, platelet 176. PT 11.2, INR 1.08, PTT 30. Sodium 140, potassium 4.3, chloride 106, bicarbonate 26, BUN 18, creatinine 0.5, GFR more than 60, alkaline phosphatase 129. Urine showed a shows leukocyte esterase 1+. RECOMMENDATIONS: 1. Dilantin levels to be checked. Continue Dilantin. 2. EEG to rule out any paroxysmal activities. 3. MRA of the brain to assess the intracranial pathology as I described above. 4. The patient will be followed closely. Hang Bejarano MD
--- NOTE | 2018-06-28 18:05 | CP.PCM.HP ---
Past Patient History - Infectious Disease Hx of Infectious Diseases: None - Past Medical History & Family History Past Medical History?: Yes - Past Social History Smoking Status: Never Smoked - CARDIAC Hx Hypertension: Yes - PULMONARY Hx Asthma: Yes - NEUROLOGICAL Hx Seizures: Yes - HEENT Hx HEENT Problems: No - RENAL Hx Chronic Kidney Disease: No - ENDOCRINE/METABOLIC Hx Endocrine Disorders: No - HEMATOLOGICAL/ONCOLOGICAL Hx Blood Disorders: Yes Hx Cancer: Yes (ovarian) - INTEGUMENTARY Hx Dermatological Problems: Yes Other/Comment: RT BREAST CYST REMOVED -BENIGN - MUSCULOSKELETAL/RHEUMATOLOGICAL Hx Musculoskeletal Disorders: Yes Hx Falls: No Hx Herniated Disk: Yes - GASTROINTESTINAL Hx Gastrointestinal Disorders: No - GENITOURINARY/GYNECOLOGICAL Hx Genitourinary Disorders: Yes Hx Ovarian Cancer: Yes - PSYCHIATRIC Hx Substance Use: No - SURGICAL HISTORY Hx Cholecystectomy: Yes - ANESTHESIA Hx Anesthesia: Yes Hx Anesthesia Reactions: No Meds Allergies/Adverse Reactions: Allergies Allergy/AdvReac Type Severity Reaction Status Date / Time aspirin Allergy Verified 06/27/18 21:47 latex Allergy Verified 06/27/18 21:47 Penicillins Allergy Verified 06/27/18 21:47 Physical Exam - Constitutional Appears: Well - Head Exam Head Exam: ATRAUMATIC, NORMAL INSPECTION, NORMOCEPHALIC - Eye Exam Eye Exam: EOMI, Normal appearance, PERRL Pupil Exam: NORMAL ACCOMODATION, PERRL - ENT Exam ENT Exam: Mucous Membranes Moist, Normal Exam - Neck Exam Neck exam: Positive for: Normal Inspection - Respiratory Exam Respiratory Exam: Decreased Breath Sounds - Cardiovascular Exam Cardiovascular Exam: REGULAR RHYTHM, +S1, +S2 - GI/Abdominal Exam GI & Abdominal Exam: Diminished Bowel Sounds, Soft - Rectal Exam Rectal Exam: Deferred - Neurological Exam Neurological exam: Oriented x3 Results - Vital Signs Recent Vital Signs: Last Vital Signs Temp 98.2 F 06/28/18 15:00 Pulse 63 06/28/18 16:00 Resp 20 06/28/18 15:00 BP 125/80 06/28/18 15:00 Pulse Ox 96 06/28/18 15:00 - Labs Result Diagrams: 06/27/18 22:29 06/27/18 22:29 Labs: Laboratory Results - last 24 hr 06/27/18 06/27/18 06/27/18 21:49 22:29 22:29 WBC 6.0 RBC 4.25 Hgb 13.1 Hct 39.2 MCV 92.1 MCH 30.9 MCHC 33.6 RDW 13.4 Plt Count 176 MPV 9.3 Neut % (Auto) 63.6 Lymph % (Auto) 26.1 [place] % (Auto) 8.0 Eos % (Auto) 1.6 Baso % (Auto) 0.7 Neut # (Auto) 3.8 Lymph # (Auto) 1.6 [place] # (Auto) 0.5 Eos # (Auto) 0.1 Baso # (Auto) 0.0 PT 11.2 INR 1.0 APTT 30 Sodium Potassium Chloride Carbon Dioxide Anion Gap BUN Creatinine Est GFR ( Amer) Est GFR (Non-Af Amer) POC Glucose (mg/dL) 103 Random Glucose Hemoglobin A1c Calcium Total Bilirubin AST ALT Alkaline Phosphatase Total Creatine Kinase CK-MB (Mass) Troponin I Total Protein Albumin Globulin Albumin/Globulin Ratio Free T4 TSH 3rd Generation Prolactin Urine Color Urine Clarity Urine pH Ur Specific [place] Urine Protein Urine Glucose (UA) Urine Ketones Urine Blood Urine Nitrate Urine Bilirubin Urine Urobilinogen Ur Leukocyte Esterase Urine WBC (Auto) Urine RBC (Auto) Ur Squamous Epith Cells Phenytoin Blood Type Antibody Screen 06/27/18 06/27/18 06/27/18 22:29 22:29 22:41 WBC RBC Hgb Hct MCV MCH MCHC RDW Plt Count MPV Neut % (Auto) Lymph % (Auto) [place] % (Auto) Eos % (Auto) Baso % (Auto) Neut # (Auto) Lymph # (Auto) [place] # (Auto) Eos # (Auto) Baso # (Auto) PT INR APTT Sodium 140 Potassium 4.3 Chloride 106 Carbon Dioxide 26 Anion Gap 12 BUN 18 H Creatinine 0.5 L Est GFR ( Amer) > 60 Est GFR (Non-Af Amer) > 60 POC Glucose (mg/dL) Random Glucose 91 D Hemoglobin A1c Calcium 9.4 Total Bilirubin 0.2 AST 25 ALT 17 Alkaline Phosphatase 129 H Total Creatine Kinase 81 CK-MB (Mass) 0.79 Troponin I < 0.0120 Total Protein 6.9 Albumin 4.3 Globulin 2.6 Albumin/Globulin Ratio 1.7 Free T4 TSH 3rd Generation Prolactin Urine Color Yellow Urine Clarity Clear Urine pH 7.0 Ur Specific [place] 1.013 Urine Protein Negative Urine Glucose (UA) Normal Urine Ketones Negative Urine Blood Negative Urine Nitrate Negative Urine Bilirubin Negative Urine Urobilinogen Normal Ur Leukocyte Esterase 1+ H Urine WBC (Auto) 4 Urine RBC (Auto) 3 Ur Squamous Epith Cells 1 Phenytoin Blood Type O POSITIVE Antibody Screen Negative 06/28/18 06/28/18 06/28/18 07:15 07:15 07:15 WBC RBC Hgb Hct MCV MCH MCHC RDW Plt Count MPV Neut % (Auto) Lymph % (Auto) [place] % (Auto) Eos % (Auto) Baso % (Auto) Neut # (Auto) Lymph # (Auto) [place] # (Auto) Eos # (Auto) Baso # (Auto) PT INR APTT Sodium Potassium Chloride Carbon Dioxide Anion Gap BUN Creatinine Est GFR ( Amer) Est GFR (Non-Af Amer) POC Glucose (mg/dL) Random Glucose Hemoglobin A1c Calcium Total Bilirubin AST ALT Alkaline Phosphatase Total Creatine Kinase CK-MB (Mass) Troponin I Total Protein Albumin Globulin Albumin/Globulin Ratio Free T4 0.83 TSH 3rd Generation 2.54 Prolactin 14.9 Urine Color Urine Clarity Urine pH Ur Specific [place] Urine Protein Urine Glucose (UA) Urine Ketones Urine Blood Urine Nitrate Urine Bilirubin Urine Urobilinogen Ur Leukocyte Esterase Urine WBC (Auto) Urine RBC (Auto) Ur Squamous Epith Cells Phenytoin 6.4 L Blood Type Antibody Screen 06/28/18 06/28/18 06/28/18 07:15 07:21 11:33 WBC RBC Hgb Hct MCV MCH MCHC RDW Plt Count MPV Neut % (Auto) Lymph % (Auto) [place] % (Auto) Eos % (Auto) Baso % (Auto) Neut # (Auto) Lymph # (Auto) [place] # (Auto) Eos # (Auto) Baso # (Auto) PT INR APTT Sodium Potassium Chloride Carbon Dioxide Anion Gap BUN Creatinine Est GFR ( Amer) Est GFR (Non-Af Amer) POC Glucose (mg/dL) Random Glucose Hemoglobin A1c 5.3 Calcium Total Bilirubin AST ALT Alkaline Phosphatase Total Creatine Kinase 70 67 CK-MB (Mass) 0.71 0.62 Troponin I < 0.0120 < 0.0120 Total Protein Albumin Globulin Albumin/Globulin Ratio Free T4 TSH 3rd Generation Prolactin 10.9 Urine Color Urine Clarity Urine pH Ur Specific [place] Urine Protein Urine Glucose (UA) Urine Ketones Urine Blood Urine Nitrate Urine Bilirubin Urine Urobilinogen Ur Leukocyte Esterase Urine WBC (Auto) Urine RBC (Auto) Ur Squamous Epith Cells Phenytoin Blood Type Antibody Screen 04/19/19 17:00 WBC RBC Hgb Hct MCV MCH MCHC RDW Plt Count MPV Neut % (Auto) Lymph % (Auto) [place] % (Auto) Eos % (Auto) Baso % (Auto) Neut # (Auto) Lymph # (Auto) [place] # (Auto) Eos # (Auto) Baso # (Auto) PT INR APTT Sodium Potassium Chloride Carbon Dioxide Anion Gap BUN Creatinine Est GFR ( Amer) Est GFR (Non-Af Amer) POC Glucose (mg/dL) Random Glucose Hemoglobin A1c Calcium Total Bilirubin AST ALT Alkaline Phosphatase Total Creatine Kinase 66 CK-MB (Mass) Troponin I < 0.0120 Total Protein Albumin Globulin Albumin/Globulin Ratio Free T4 TSH 3rd Generation Prolactin Urine Color Urine Clarity Urine pH Ur Specific [place] Urine Protein Urine Glucose (UA) Urine Ketones Urine Blood Urine Nitrate Urine Bilirubin Urine Urobilinogen Ur Leukocyte Esterase Urine WBC (Auto) Urine RBC (Auto) Ur Squamous Epith Cells Phenytoin Blood Type Antibody Screen
[2018-06-28 18:25] LABS: CK-MB 0.57 ng/mL (0.0-3.38)
--- NOTE | 2018-06-28 23:24 | CARD ---
APPROVED REPORT Date of service: 06/27/2018 EKG Measurement Heart [id number] <Conclusion> Normal sinus rhythm Normal ECG
--- NOTE | 2018-06-29 07:53 | CP.PCM.CON ---
History of Present Illness - History of Present Illness History of Present Illness: CC: Mechanical fall HPI: 77 year old female with report presyncope. She was sitting in [place] reported presyncope. She is reporting assocated injury from fall. Denies angina or CHF. Review of Systems - Review of Systems All systems: reviewed and no additional remarkable complaints except Past Patient History - Infectious Disease Hx of Infectious Diseases: None - Past Medical History & Family History Past Medical History?: Yes - Past Social History Smoking Status: Never Smoked - CARDIAC Hx Hypertension: Yes - PULMONARY Hx Asthma: Yes - NEUROLOGICAL Hx Seizures: Yes - HEENT Hx HEENT Problems: No - RENAL Hx Chronic Kidney Disease: No - ENDOCRINE/METABOLIC Hx Endocrine Disorders: No - HEMATOLOGICAL/ONCOLOGICAL Hx Blood Disorders: Yes Hx Cancer: Yes (ovarian) - INTEGUMENTARY Hx Dermatological Problems: Yes Other/Comment: RT BREAST CYST REMOVED -BENIGN - MUSCULOSKELETAL/RHEUMATOLOGICAL Hx Musculoskeletal Disorders: Yes Hx Falls: No Hx Herniated Disk: Yes - GASTROINTESTINAL Hx Gastrointestinal Disorders: No - GENITOURINARY/GYNECOLOGICAL Hx Genitourinary Disorders: Yes Hx Ovarian Cancer: Yes - PSYCHIATRIC Hx Substance Use: No - SURGICAL HISTORY Hx Cholecystectomy: Yes - ANESTHESIA Hx Anesthesia: Yes Hx Anesthesia Reactions: No Meds Allergies/Adverse Reactions: Allergies Allergy/AdvReac Type Severity Reaction Status Date / Time aspirin Allergy Verified 06/27/18 21:47 latex Allergy Verified 06/27/18 21:47 Penicillins Allergy Verified 06/27/18 21:47 - Medications Medications: Current Medications Clonazepam (Klonopin) 2 mg PO TID [facility] Last Admin: 06/28/18 17:43 Dose: Not Given Clopidogrel Bisulfate (Plavix) 75 mg PO DAILY [facility] Phenytoin (Dilantin) 100 mg PO TID [facility] Last Admin: 06/28/18 17:37 Dose: 100 mg Physical Exam - Constitutional Appears: Well, Non-toxic - Head Exam Head Exam: ATRAUMATIC, NORMAL INSPECTION - Eye Exam Eye Exam: PERRL. absent: Scleral icterus - ENT Exam ENT Exam: Normal External Ear Exam. absent: Mucous Membranes Moist - Neck Exam Neck exam: Positive for: Full Rom. Negative for: Lymphadenopathy - Respiratory Exam Respiratory Exam: Clear to Auscultation Bilateral, NORMAL BREATHING PATTERN - Cardiovascular Exam Cardiovascular Exam: REGULAR RHYTHM, RRR, +S1, +S2. absent: JVD - GI/Abdominal Exam GI & Abdominal Exam: Normal Bowel Sounds. absent: Organomegaly - Extremities Exam Extremities exam: Negative for: calf tenderness, pedal edema - Neurological Exam Neurological exam: CN II-XII Intact, Oriented x3 - Psychiatric Exam Psychiatric exam: Normal Affect, Normal Mood Results - Vital Signs Recent Vital Signs: Last Vital Signs Temp 97.9 F 06/28/18 23:20 Pulse 66 06/28/18 23:20 Resp 20 06/28/18 23:20 BP 131/77 06/28/18 23:20 Pulse Ox 99 06/29/18 03:56 - Labs Result Diagrams: 06/27/18 22:29 06/27/18 22:29 Labs: Laboratory Results - last 24 hr 06/28/18 06/28/18 06/28/18 07:15 07:15 07:15 Hemoglobin A1c Total Creatine Kinase CK-MB (Mass) Troponin I Free T4 0.83 TSH 3rd Generation 2.54 Prolactin 14.9 Phenytoin 6.4 L 06/28/18 06/28/18 06/28/18 07:15 07:21 11:33 Hemoglobin A1c 5.3 Total Creatine Kinase 70 67 CK-MB (Mass) 0.71 0.62 Troponin I < 0.0120 < 0.0120 Free T4 TSH 3rd Generation Prolactin 10.9 Phenytoin 06/28/18 17:00 Hemoglobin A1c Total Creatine Kinase 66 CK-MB (Mass) 0.57 Troponin I < 0.0120 Free T4 TSH 3rd Generation Prolactin Phenytoin - EKG Data EKG Interpreted by: Myself EKG shows normal: Sinus rhythm Rate: Normal - Imaging and Cardiology Chest x-ray Status: Image reviewed by me (No infiltrates or effusions) Assessment & Plan - Assessment and Plan (Free Text) Assessment: 77 year old female with vasodepressor presyncope. Encoureage fluid indtake. ROSEMARY stocking while "sitting" for long periods of time will be helpful. NSTEMI I ordered serial trop and they are negative. RI has been ruled out. Unclear why she is on plavix. Continue aspirin. Seizures Neurology follow up, currently stable Anxiety on Klonapin, this will exacerbate presyncope. Follow up in my office in 2 week to reassess symptoms. - Date & Time Date: 06/29/18 Time: 08:04
[2018-06-29] MEDS: Phenytoin 100 mg/4 ml Oral Susp UD PO SCH ×3 (09:52→17:24)
--- NOTE | 2018-06-29 19:32 | CP.PCM.PN ---
Subjective - Date & Time of Evaluation Date of Evaluation: 06/29/18 - Subjective Subjective: patient seen and examined at bedside today no nausea, no vomiting, no diarrhea, no fever, no shortness of breath Objective - Vital Signs/Intake and Output Vital Signs (last 24 hours): Temp Pulse Resp BP Pulse Ox 98.1 F 68 20 117/69 95 06/29/18 16:19 06/29/18 16:19 06/29/18 16:19 06/29/18 16:19 06/29/18 16:19 - Medications Medications: Current Medications Clonazepam (Klonopin) 2 mg PO TID [facility] Last Admin: 06/29/18 17:22 Dose: 2 mg Clopidogrel Bisulfate (Plavix) 75 mg PO DAILY [facility] Last Admin: 06/29/18 09:52 Dose: 75 mg Phenytoin (Dilantin) 100 mg PO TID [facility] Last Admin: 06/29/18 17:24 Dose: 100 mg - Labs Labs: 06/27/18 22:29 06/27/18 22:29 PT 11.2 SECONDS (9.7-12.2) 06/27/18 22:29 INR 1.0 06/27/18 22:29 APTT 30 SECONDS (21-34) 06/27/18 22:29 - Constitutional Appears: Well - Head Exam Head Exam: ATRAUMATIC, NORMAL INSPECTION, NORMOCEPHALIC - Eye Exam Eye Exam: EOMI, Normal appearance, PERRL Pupil Exam: NORMAL ACCOMODATION, PERRL - ENT Exam ENT Exam: Mucous Membranes Moist, Normal Exam - Neck Exam Neck Exam: Full ROM, Normal Inspection. absent: Lymphadenopathy - Respiratory Exam Respiratory Exam: Decreased Breath Sounds - Cardiovascular Exam Cardiovascular Exam: REGULAR RHYTHM, +S1, +S2 - GI/Abdominal Exam GI & Abdominal Exam: Soft, Diminished Bowel Sounds - Rectal Exam Rectal Exam: Deferred - Neurological Exam Neurological Exam: Oriented x3 Assessment and Plan - Assessment and Plan (Free Text) Plan: medications reviewed labs reviewed vitals reviewed dilantin klonopin plavix
[2018-06-30] MEDS: Phenytoin 100 mg/4 ml Oral Susp UD PO SCH ×2 (09:47→13:05)
--- NOTE | 2018-06-30 16:25 | CP.PCM.PN ---
Subjective - Date & Time of Evaluation Date of Evaluation: 06/30/18 - Subjective Subjective: patient seen today, no nausea, no diarrhea, no fever, no shortness of breath, no dizziness. Objective - Vital Signs/Intake and Output Vital Signs (last 24 hours): Temp Pulse Resp BP Pulse Ox 98.1 F 71 20 101/62 98 06/30/18 07:00 06/30/18 12:26 06/30/18 07:00 06/30/18 07:00 06/30/18 07:00 Intake and Output: 06/30/18 06/30/18 06:59 18:59 Intake Total 350 Balance 350 - Medications Medications: Current Medications Clonazepam (Klonopin) 2 mg PO TID [facility] Last Admin: 06/30/18 13:05 Dose: 2 mg Clopidogrel Bisulfate (Plavix) 75 mg PO DAILY [facility] Last Admin: 06/30/18 09:47 Dose: 75 mg Phenytoin Sodium (Dilantin) 100 mg PO TID [facility] - Labs Labs: 06/27/18 22:29 06/27/18 22:29 PT 11.2 SECONDS (9.7-12.2) 06/27/18 22:29 INR 1.0 06/27/18 22:29 APTT 30 SECONDS (21-34) 06/27/18 22:29 - Constitutional Appears: Well - Head Exam Head Exam: ATRAUMATIC, NORMAL INSPECTION, NORMOCEPHALIC - Eye Exam Eye Exam: EOMI, Normal appearance, PERRL Pupil Exam: NORMAL ACCOMODATION, PERRL - ENT Exam ENT Exam: Mucous Membranes Moist, Normal Exam - Neck Exam Neck Exam: Full ROM, Normal Inspection. absent: Lymphadenopathy - Respiratory Exam Respiratory Exam: Decreased Breath Sounds - Cardiovascular Exam Cardiovascular Exam: REGULAR RHYTHM, +S1, +S2 - GI/Abdominal Exam GI & Abdominal Exam: Soft, Diminished Bowel Sounds - Rectal Exam Rectal Exam: Deferred - Neurological Exam Neurological Exam: Oriented x3 Assessment and Plan - Assessment and Plan (Free Text) Plan: labs reviewed medications reviewed vitals reviewed dilantin klonopin plavix
--- NOTE | 2018-07-01 09:36 | PN ---
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 PHYSICAL EXAMINATION: VITAL SIGNS: Blood pressure 122/75, mean artery pressure of 90, respiratory rate 18, temperature 97.3 with a pulse rate 67. MENTAL STATUS EXAM: The patient is more awake, alert, oriented to person, place, and time. Speech is clear. Naming, repetition, fluency, comprehension all within normal. The patient seems to come back to her baseline activities. The patient did not have any seizures for the last 72 hours since got admission. Requested electroencephalogram is still pending. Once it was done, that can be reviewed. Dilantin levels showed 6.7 which is subtherapeutic and recommended to have extra 50 mg of Dilantin that can be given in the morning in addition to her mg of Dilantin once a day. 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 Since the patient has recurrent seizures that should be considered decompression. That can be done and followup with the neurosurgeon as outpatient. Hang Bejarano MD
--- NOTE | 2018-07-01 20:22 | CP.PCM.PN ---
Subjective - Date & Time of Evaluation Date of Evaluation: 07/01/18 - Subjective Subjective: patient seen and examined today at bedside no nausea no shortness of breath no fever no dizziness no diarrhea Objective - Vital Signs/Intake and Output Vital Signs (last 24 hours): Temp Pulse Resp BP Pulse Ox 97.9 F 68 18 110/71 98 07/01/18 15:42 07/01/18 15:42 07/01/18 15:42 07/01/18 15:42 07/01/18 15:42 - Medications Medications: Current Medications Clonazepam (Klonopin) 2 mg PO TID [facility] Last Admin: 07/01/18 17:34 Dose: 2 mg Clopidogrel Bisulfate (Plavix) 75 mg PO DAILY [facility] Last Admin: 07/01/18 10:55 Dose: 75 mg Phenytoin (Dilantin) 50 mg PO QAM [facility] Last Admin: 07/01/18 12:24 Dose: 50 mg Phenytoin Sodium (Dilantin) 100 mg PO TID [facility] Last Admin: 07/01/18 17:34 Dose: 100 mg - Labs Labs: 06/27/18 22:29 06/27/18 22:29 PT 11.2 SECONDS (9.7-12.2) 06/27/18 22:29 INR 1.0 06/27/18 22:29 APTT 30 SECONDS (21-34) 06/27/18 22:29 - Constitutional Appears: Well - Head Exam Head Exam: ATRAUMATIC, NORMAL INSPECTION, NORMOCEPHALIC - Eye Exam Eye Exam: EOMI, Normal appearance, PERRL Pupil Exam: NORMAL ACCOMODATION, PERRL - ENT Exam ENT Exam: Mucous Membranes Moist, Normal Exam - Neck Exam Neck Exam: Full ROM, Normal Inspection. absent: Lymphadenopathy - Respiratory Exam Respiratory Exam: Decreased Breath Sounds - Cardiovascular Exam Cardiovascular Exam: REGULAR RHYTHM, +S1, +S2 - GI/Abdominal Exam GI & Abdominal Exam: Soft, Diminished Bowel Sounds - Rectal Exam Rectal Exam: Deferred - Neurological Exam Neurological Exam: Oriented x3 Assessment and Plan - Assessment and Plan (Free Text) Plan: labs reviewed vitals reviewed medications reviewed dilantin klonopin plavix
[2018-07-02 02:25] VITALS: RESP 20
[2018-07-02 15:25] VITALS: PULSE 70
--- NOTE | 2018-07-02 17:11 | CP.PCM.PN ---
Subjective - Date & Time of Evaluation Date of Evaluation: 07/02/18 Time of Evaluation: 17:11 - Subjective Subjective: Patient is seen and examined Chart reviewed Objective - Vital Signs/Intake and Output Vital Signs (last 24 hours): Temp Pulse Resp BP Pulse Ox 97.7 F 70 20 119/72 95 07/02/18 07:00 07/02/18 15:23 07/02/18 07:00 07/02/18 07:00 07/02/18 07:00 Intake and Output: 07/02/18 07/02/18 06:59 18:59 Intake Total 100 Balance 100 - Medications Medications: Current Medications Clonazepam (Klonopin) 2 mg PO TID [facility] Last Admin: 07/02/18 13:18 Dose: 2 mg Clopidogrel Bisulfate (Plavix) 75 mg PO DAILY [facility] Last Admin: 07/02/18 10:51 Dose: 75 mg Phenytoin (Dilantin) 50 mg PO QAM [facility] Last Admin: 07/02/18 10:50 Dose: 50 mg Phenytoin Sodium (Dilantin) 100 mg PO TID [facility] Last Admin: 07/02/18 13:18 Dose: 100 mg - Labs Labs: 06/27/18 22:29 06/27/18 22:29 PT 11.2 SECONDS (9.7-12.2) 06/27/18 22:29 INR 1.0 06/27/18 22:29 APTT 30 SECONDS (21-34) 06/27/18 22:29 - Head Exam Head Exam: NORMAL INSPECTION - Eye Exam Eye Exam: Normal appearance - ENT Exam ENT Exam: Mucous Membranes Moist - Neck Exam Neck Exam: Normal Inspection - Respiratory Exam Respiratory Exam: Clear to Ausculation Bilateral - Cardiovascular Exam Cardiovascular Exam: REGULAR RHYTHM, +S1, +S2 - GI/Abdominal Exam GI & Abdominal Exam: Soft, Normal Bowel Sounds - Extremities Exam Extremities Exam: Normal Inspection - Neurological Exam Neurological Exam: Alert, Oriented x3 - Psychiatric Exam Psychiatric exam: Normal Affect, Normal Mood Assessment and Plan (1) Meningioma Status: Acute (2) Bronchitis, asthmatic Status: Acute (3) Syncope Status: Acute - Assessment and Plan (Free Text) Plan: Patient is to be evaluated by neurosurgery as outpatient for meningioma resection Awaiting EEG Continue current medications Patient has been ruled out for VT Cleared by cardiology Discharge home if EEG is negative and patient is cleared by neurology
[2018-07-02 17:22] VITALS: BP 109/66; TEMP 98.1; O2SAT 96
--- NOTE | 2018-07-02 20:15 | PN ---
DATE: 07/02/2018 TIME OF EVALUATION: 07:05 a.m. NEUROLOGICAL PROBLEM: Possible seizures due to subtherapeutic dose of antiepileptic drugs. PHYSICAL EXAMINATION: VITAL SIGNS: Blood pressure 103/52, mean artery pressure of 69, temperature 97.9 with a pulse rate of 61 and regular. GENERAL: The patient is awake, alert, oriented to person, place, and time. She moves all four extremities against the gravity. Speech is clear. NEUROLOGICAL: Examination is unchanged to compare with the previous examination. Her electroencephalogram is being reviewed, showed some sharp-wave activities noted over the right temporal region consistent with epileptiform focus. The patient's Dilantin dose is increased to 350 mg to keep therapeutic level. The patient has been taking Klonopin, which seems to be the higher dose for her. I do not think she does need this high dose for her sleeping purpose. That dose has to be slowed down or discontinued slowly from her own neurologist that can be done as outpatient. I am signing her off from neurological followup. If any change in neuro status, please consider to call me for further evaluation. Hang Bejarano MD
--- NOTE | 2018-07-09 15:16 | CP.PCM.DIS ---
Provider - Provider Date of Admission: 06/29/18 16:01 Attending physician: Geovanny Elaine MD Consults: 06/28/18 08:00 Cardiology Consult Routine Comment: syncope Consulting Provider: Taco Escoto Consulting Physician: Taco Escoto Reason for Consult: syncopal episode Neurology Consult Routine Comment: Consulting Provider: Hang Bejarano Consulting Physician: Hang Bejarano Reason for Consult: syncope Time Spent in preparation of Discharge (in minutes): 1 Hospital Course - Lab Results Lab Results: Micro Results 06/27/18 22:41 Urine Random Urine Culture - Final <10,000 CFU/ML. MULTIPLE SPECIES. PROBABLE CONTAMINATION. Most Recent Lab Values WBC 6.0 K/uL (4.8-10.8) 06/27/18 22:29 RBC 4.25 Mil/uL (3.80-5.20) 06/27/18 22:29 Hgb 13.1 g/dL (11.0-16.0) 06/27/18 22:29 Hct 39.2 % (34.0-47.0) 06/27/18 22:29 MCV 92.1 fL (81.0-99.0) 06/27/18 22: MCH 30.9 pg (27.0-31.0) 06/27/18 22:29 MCHC 33.6 g/dL (33.0-37.0) 06/27/18 22:29 RDW 13.4 % (11.5-14.5) 06/27/18 22:29 Plt Count 176 K/uL (130-400) 06/27/18 22:29 MPV 9.3 fL (7.2-11.7) 06/27/18 22:29 Neut % (Auto) 63.6 % (50.0-75.0) 06/27/18 22: Lymph % (Auto) 26.1 % (20.0-40.0) 06/27/18 22: [place] % (Auto) 8.0 % (0.0-10.0) 06/27/18 22:29 Eos % (Auto) 1.6 % (0.0-4.0) 06/27/18 22:29 Baso % (Auto) 0.7 % (0.0-2.0) 06/27/18 22:29 Neut # (Auto) 3.8 K/uL (1.8-7.0) 06/27/18 22: Lymph # (Auto) 1.6 K/uL (1.0-4.3) 06/27/18 22:29 [place] # (Auto) 0.5 K/uL (0.0-0.8) 06/27/18 22: Eos # (Auto) 0.1 K/uL (0.0-0.7) 06/27/18 22:29 Baso # (Auto) 0.0 K/uL (0.0-0.2) 06/27/18 22: PT 11.2 SECONDS (9.7-12.2) 06/27/18: INR 1.0 06/27/18 22: APTT 30 SECONDS (21-34) 06/27/18 22:29 Sodium 140 mmol/L (132-148) 06/27/18 22:29 Potassium 4.3 mmol/L (3.6-5.2) 06/27/18 22:29 Chloride 106 mmol/L (98-107) 06/27/18 22:29 Carbon Dioxide 26 mmol/L (22-30) 06/27/18 22:29 Anion Gap 12 (10-20) 06/27/18 22:29 BUN 18 mg/dL (7-17) H 06/27/18 22:29 Creatinine 0.5 mg/dL (0.7-1.2) L 06/27/18 22:29 Est GFR ( Amer) > 60 06/27/18 22:29 Est GFR (Non-Af Amer) > 60 06/27/18 22:29 POC Glucose (mg/dL) 103 mg/dL (65-110) 06/27/18 21:49 Random Glucose 91 mg/dL (65-105) D 06/27/18 22:29 Hemoglobin A1c 5.3 % (4.2-6.5) 06/28/18 07:15 Calcium 9.4 mg/dl (8.6-10.4) 06/27/18 22:29 Total Bilirubin 0.2 mg/dL (0.2-1.3) 06/27/18 22:29 AST 25 U/L (14-36) 06/27/18 22:29 ALT 17 U/L (9-52) 06/27/18 22:29 Alkaline Phosphatase 129 U/L (38-126) H 06/27/18 22:29 Total Creatine Kinase 66 U/L (30-135) 06/28/18 17:00 CK-MB (Mass) 0.57 ng/mL (0.0-3.38) 06/28/18 17:00 Troponin I < 0.0120 ng/mL (0.00-0.120) 06/28/18 17:00 Total Protein 6.9 g/dL (6.3-8.3) 06/27/18 22:29 Albumin 4.3 g/dL (3.5-5.0) 06/27/18 22:29 Globulin 2.6 gm/dL (2.2-3.9) 06/27/18 22:29 Albumin/Globulin Ratio 1.7 (1.0-2.1) 06/27/18 22:29 Free T4 0.83 ng/dL (0.78-2.19) 06/28/18 07:15 TSH 3rd Generation 2.54 mIU/L (0.46-4.68) 06/28/18 07:15 Prolactin 10.9 ng/mL (3.0-18.9) 06/28/18 11:33 Urine Color Yellow (YELLOW) 06/27/18 22:41 Urine Clarity Clear (Clear) 06/27/18 22:41 Urine pH 7.0 (5.0-8.0) 06/27/18 22:41 Ur Specific Fisher 1.013 (1.003-1.030) 06/27/18 22:41 Urine Protein Negative mg/dL (NEGATIVE) 06/27/18 22:41 Urine Glucose (UA) Normal mg/dL (Normal) 06/27/18 22:41 Urine Ketones Negative mg/dL (NEGATIVE) 06/27/18 22:41 Urine Blood Negative (NEGATIVE) 06/27/18 22:41 Urine Nitrate Negative (NEGATIVE) 06/27/18 22:41 Urine Bilirubin Negative (NEGATIVE) 06/27/18 22:41 Urine Urobilinogen Normal mg/dL (0.2-1.0) 06/27/18 22:41 Ur Leukocyte Esterase 1+ Erica/uL (Negative) H 06/27/18 22:41 Urine WBC (Auto) 4 /hpf (0-5) 06/27/18 22:41 Urine RBC (Auto) 3 /hpf (0-3) 06/27/18 22:41 Ur Squamous Epith Cells 1 /hpf (0-5) 06/27/18 22:41 Phenytoin 6.4 ug/mL (10-20) L 06/28/18 07:15 Blood Type O POSITIVE 06/27/18 22:29 Antibody Screen Negative 06/27/18 22:29 - Hospital Course Hospital Course: 77-year-old female who recently had presented with syncopal episode was found to have meningioma was being worked up for syncopal episode. Patient signed out AGAINST MEDICAL ADVICE while she was awaiting clearance for discharge. Discharge Exam - Head Exam Head Exam: ATRAUMATIC, NORMAL INSPECTION, NORMOCEPHALIC Discharge Plan - Follow Up Plan Condition: FAIR Disposition: AGAINST MEDICAL ADVICE Instructions: Heart Healthy Diet, Syncope (Fainting) (DC) Referrals: Mario Davis MD [Staff Provider] - Mahesh Elaine MD [Staff Provider] -
== END 2018-07-02 20:30 | disposition left against medical advice (07) | DRG 55 ==
LOC: C.ER 21:35 → C.9E 23:05 → C.6T 23:38 → OBSVTOIN 06-29 16:01
PROVIDERS: ADMIT Internal Medicine Nephrology; ATTEND Internal Medicine Nephrology
DX: D32.9 Benign neoplasm of meninges, unspecified (principal); R55 Syncope and collapse; F41.9 Anxiety disorder, unspecified; I10 Essential (primary) hypertension; J45.909 Unspecified asthma, uncomplicated; W18.30XA Fall on same level, unspecified, initial encounter; S00.81XA Abrasion of other part of head, initial encounter; R56.9 Unspecified convulsions